=== PATIENT | female | born 1965 | race Caucasian/White ===

== ENCOUNTER → 2016-09-25 20:02 | Outpatient (CLI) | payer OTHER ==
[2015-11-08 10:13] VITALS: BMI 32.2
[~2016-09-25 20:02] MED LIST: ANAPROX DS550 MG PO; CETIRIZINE HCL5 MG PO; EZFE 200200 MG PO; FERROUS SULFAT325 MG PO; HYDROCHLOROTH12.5 M1 PO; PRINIVIL20 MG PO; SPRINTEC1 TAB PO; TAMIFLU75 MG PO
== END | disposition home or self-care (01) ==
LOC: D.MAMMO 09-17 15:00
DX: Z12.31 Encounter for screening mammogram for malignant neoplasm of breast (principal)

== ENCOUNTER 2016-10-28 08:50 | Outpatient (CLI) | payer OTHER ==
[2015-11-08 10:13] VITALS: BMI 32.2
== END 2016-10-28 11:28 ==
LOC: D.MAMMO 08:50
DX: R92.8 Other abnormal and inconclusive findings on diagnostic imaging of breast (principal)

== ENCOUNTER 2018-08-05 08:00 | Outpatient (CLI) | payer MEDICARE ==
[2015-11-08 10:13] VITALS: BMI 32.2
== END 2018-08-05 09:00 | disposition home or self-care (01) ==
LOC: D.MAMMO 08:00
PROVIDERS: ATTEND Family Medicine
DX: Z12.31 Encounter for screening mammogram for malignant neoplasm of breast (principal)